=== PATIENT | male | born 1995 | race Caucasian/White ===

== ENCOUNTER → 2020-10-09 10:44 | Outpatient (CLI) | payer OTHER, SELFPAY ==
[2020-10-09 11:04] LABS: Basophils # 0.1 K/mm3 (0-0.2); Eosinophils # 0.2 K/mm3 (0.0-0.4); Eosinophils % 2.1 % (0.1-12.0); Hematocrit 47.1 % (42.0-52.0); Hemoglobin 15.9 g/dL (14.1-18.0); Lymphocytes # 3.1 K/mm3 (0.7-4.5); Lymphocytes % 33.2 % (10-50); Mean Corpuscular HGB Conc 33.6 g/dL (31.8-35.4); Mean Corpuscular Hemoglobin 29.1 pg (27.0-31.2); Mean Corpuscular Volume 86.6 fl (80-94); Mean Platelet Volume 7.6 fl (7.4-10.4); Monocytes # 0.4 K/mm3 (0.1-1.0); Monocytes % 4.3 % (1.7-9.3); Neutrophils # 5.6 K/mm3 (1.8-7.8); Neutrophils % 59.3 % (37.0-80.0); Platelet Count 279 K/mm3 (142-424); Red Blood Count 5.44 M/mm3 (4.60-6.20); Red Cell Distribution Width 13.1 % (11.5-17.5); White Blood Count 9.4 K/mm3 (4.8-10.8)
[2020-10-09 12:15] LABS: Hemoglobin A1C 4.9 % (4.0-6.0)
[2020-10-09 12:27] LABS: Chloride 103 mmol/L (98-107); Sodium 139 mmol/L (136-145)
[2020-10-09 12:28] LABS: Potassium 4.6 mmoL/L (3.5-5.1)
[2020-10-09 12:30] LABS: Alanine Aminotransferase 42 U/L (12-78); Albumin Level 4.6 g/dl (3.5-5.0); Alkaline Phosphatase 65 U/L (38-126); Anion Gap 13.6 mEq/L (5-15); Aspartate Amino Transferase 28 U/L (17-59); Blood Urea Nitrogen 11 mg/dl (9-20); Carbon Dioxide 27 mmol/L (22.0-30.0); Cholesterol 143 mg/dl (140-200); Estimated Glomerular Filt Rate 117 ml/min (>60); GFR (African American) 141 ML/MIN (>60); Total Protein,Serum 7.1 g/dl (6.3-8.2); Triglycerides 137 mg/dl (30-150); VLDL Cholesterol 27 mg/dL (0-40)
[2020-10-09 12:31] LABS: Calcium 9.5 mg/dl (8.4-10.2); Chol/HDL Ratio 5.1 (1-3.5); Glucose 90 mg/dl (74-100); HDL Cholesterol 28 mg/dl (40-60)
[2020-10-09 12:42] LABS: Direct LDL Cholesterol 92.04 mg/dL (100-129)
[2020-10-09 14:45] LABS: Albumin/Globulin Ratio 1.8 (1.1-1.8); Globulin 2.5 g/dL (1.3-3.2)
== END ==
PROVIDERS: Visit Provider Internal Medicine Adolescent Medicine
DX: E66.9 Obesity, unspecified (principal)
CPT/HCPCS: 36415; 80053; 80061; 83036; 85025